=== PATIENT | male | born 1985 | race Caucasian/White ===

== ENCOUNTER → 2016-09-23 | Day surgery (SDC) | payer OTHER ==
[~2016-09-23] MED LIST: APREPITANT 40 MG CAP ONE; BUPIVACAINE/EPINEPHRINE 0.5% PF 30 ML VIAL ONE; CLINDAMYCIN PHOS 600 MG/4 ML VIAL ONE; KETOROLAC TROMETHAMINE 30 MG/ML (IVP) VIAL IV PUSH ONE; LACTATED RINGER'S 1000 ML INJ 1,000 ML ONE; MIDAZOLAM HCL 2 MG/2 ML VIAL ONE; ONDANSETRON HCL 4 MG/2 ML VIAL IV PUSH ONE; PROPOFOL 200 MG/20 ML AMP IV ONE; SODIUM CHLORIDE 0.9% 100 ML ADDBAG IV ONE; TRIAMCINOLONE ACETONIDE 40 MG/ML VIAL ONE
--- NOTE | 2016-09-23 21:43 | MP ---
cc: HARDIK GARCIA M.D. 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 Medial and lateral meniscal tears with multiple loose bodies. SURGEON Dr. Hardik Garcia [employer] Staff. PROCEDURE Right knee arthroscopic abrasion arthroplasty of the patella with removal of multiple loose bodies, arthroscopic lateral release, partial medial and lateral meniscectomies. ANESTHESIA General anesthesia. TOURNIQUET TIME 10 minutes at 250 mmHg pressure. PROCEDURE The patient was brought back to the operative theater. Intravenous clindamycin. General anesthesia was administered. The right lower extremity was prepped and draped in the usual sterile fashion. We started with a standard inferolateral portal. We identified that there was a large joint effusion of viscus clear yellowish fluid. We made an inferomedial portal under spinal needle visualization. We found that there were multiple areas of not only loose bodies within the joint which were mostly scar tissue in appearance. There was also multiple areas of very friable loose scar tissue throughout the joint which included suprapatellar pouch within the patellofemoral joint in both the medial and lateral gutters and then also some covering the anterior aspect of the joint just posterior to the fat pad. There was also some in the notch as well covering the anterior cruciate ligament. We debrided all of this scar tissue and removed the multiple loose bodies within the joint. We further identified the patella which was found to be significantly subluxed, approximately 50% out the groove laterally, a lot of tightness of the lateral retinaculum. There was grade 3 chondromalacia of the medial facette of the patella along with an area of grade 4 chondromalacia the most medial aspect. We used an oscillating shaver to perform a chondroplasty and also abrasion arthroplasty by the most medial portion of the patella facette. Removed unstable segments of cartilage. We further evaluated the medial and lateral compartments. We found inner edge tearing of the medial meniscus for which a partial meniscectomy was performed with the oscillating shaver. We removed only about 10% of the inner edge of the medial meniscus. Minimal chondromalacia was noted in the medial compartment. The lateral compartment showed tear of the lateral meniscus and anterior horn which was subluxing. We used an oscillating shaver to perform a partial lateral meniscectomy, removing a portion of the lateral meniscus by the anterior horn that was unstable and a little bit of inner edge tearing. We removed approximately 10% of the lateral meniscus. We did not see significant chondromalacia of the lateral compartment. We turned attention back to the lateral retinaculum. We used underwater Bovie to perform the lateral release from the proximal lateral to the patella all the way down to the lateral portal. We could see the lateral retinaculum open very nicely and create a very good space. We were then able to easily using a single thumb reduce the patella back into anatomic position. There was still some mild subluxation with range of motion of the knee but this was much improved compared to before the lateral release. We put a tourniquet up for about 10 minutes during the lateral release and then we dropped it after the release and obtain hemostasis. We gave interarticular injection of 0.25% of Marcaine, 30 cc with 40 milligrams of Kenalog. The arthroscopic portals were closed with 2-0 Vicryl followed by 3-0 nylon. The leg was dressed. Postop plan is weightbearing as tolerated, early range of motion. MD KRISTEN Keene/BEATA /1:59 PM /9:32 PM JUAN ALBERTO
== END | disposition home or self-care (01) ==
LOC: ESDC 11:21
PROVIDERS: ATTEND Orthopaedic Surgery
DX: S83.241A Other tear of medial meniscus, current injury, right knee, initial encounter (principal); S83.281A Other tear of lateral meniscus, current injury, right knee, initial encounter; M25.461 Effusion, right knee; S83.011A Lateral subluxation of right patella, initial encounter
CPT/HCPCS: 01400; 29873; 29879; 29880; J1885; J2250; J2405; J3010; J3301; J7120; J8501